=== PATIENT | female | born 1980 | race African-American/Black ===

== ENCOUNTER 2021-12-21 09:49 | Emergency (ER) | payer OTHER ==
[~2021-12-21] VITALS: Ht 165.1 cm; Wt 65.9 kg
[2021-12-21] MEDS ORDERED: HYDR-4527 PO (10:11)
[2021-12-21 11:37] LABS: COVID AG,FIA SOURCE NASAL SWAB
[2021-12-21] MEDS ORDERED: KETOROLAC TROMETHAMINE 30 MG/ML VIAL IM ONE (12:00)
[2021-12-21 12:01] LABS: INFLUENZA TYPE A NEGATIVE FOR TYPE A (NEGATIVE); INFLUENZA TYPE B NEGATIVE FOR TYPE B (NEGATIVE)
[2021-12-21] MEDS ORDERED: ASCO500T20 PO (13:10)
[2021-12-21] MEDS ORDERED: FERR-72 PO (13:10)
[2021-12-21] MEDS ORDERED: [UNRECOGNIZED DRUG - CODE] TP (13:10)
[2021-12-21] MEDS ORDERED: DEXAMETHASONE 4 MG TABLET PO ONE (13:15)
[2021-12-21 13:35] VITALS: BP 128/81
== END 2021-12-21 13:36 | disposition home or self-care (01) ==
LOC: EMS 10:05
DX: J06.9 Acute upper respiratory infection, unspecified (principal); Z88.8 Allergy status to other drugs, medicaments and biological substances; Z88.0 Allergy status to penicillin; Z98.890 Other specified postprocedural states; Z20.822 Contact with and (suspected) exposure to COVID-19
CPT/HCPCS: 99283; 87426; 87430; 87804; 96372; J8540; J1885